=== PATIENT | female | born 1925 | race Caucasian/White ===

== ENCOUNTER 2017-05-31 08:27 | Inpatient (IN) ==
[2017-05-31] MEDS ORDERED: ONDANSETRON 4 MG/2 ML VIAL IV STA (08:52)
[2017-05-31] MEDS ORDERED: FAMOTIDINE 20 MG/2 ML VIAL IV STA (08:53)
--- NOTE | 2017-05-31 08:55 | Emergency Department Note ---
Arrival - Arrival Chief Complaint: GI Bleed/Rectal Stated Complaint: GI bleed ED Nursing Triage Note: Nausea and vomiting onset this am - black colored emesis - pt is from [facility] assisted living - pt has a HX of dementia Mode of Arrival: Stretcher Limitations: No Limitations Source: Patient, RN Notes Reviewed Time Seen by Provider: 05/31/17 08:47 - History of Present Illness HPI Narrative: Patient is an 89-year-old white female resident of the [facility]. She is seen today due to the staff having reported that she vomited coffee-ground material twice this morning. Patient has a history of a prior EGD which revealed nothing more than a hiatal hernia. Patient is not on anticoagulation. There is no history of melena, hematochezia. Onset (ago): hour(s) (3-4) Consistency: intermittent Severity: mild Date of Last Menstrual Period: missy Allergies/Adverse Reactions: Allergies Allergy/AdvReac Type Severity Reaction Status Date / Time No Known Allergies Allergy Unverified 08/15/16 03:02 Home Medications: Home Medications Medication Instructions Recorded Confirmed Type Chlorthalidone 25 mg PO DAILY 08/15/16 08/15/16 History Memantine [Namenda] 10 mg PO BID 08/15/16 08/15/16 History Mirtazapine [Remeron] 30 mg PO BEDTIME 08/15/16 08/15/16 History Pantoprazole Tab [Protonix Tab] 40 mg PO DAILY 08/15/16 08/15/16 History Ropinirole HCl [Requip] 5 mg PO BEDTIME 08/15/16 08/15/16 History Sertraline [Zoloft] 100 mg PO DAILY 08/15/16 08/15/16 History amLODIPine [Norvasc] 5 mg PO DAILY 08/15/16 08/15/16 History Albuterol/Ipratropium Neb [Duoneb] 3 ml RESP TX RT Q6H nebulization 08/18/16 Rx solution Bisacodyl Tab [Dulcolax Tab] 10 mg PO DAILY PRN #0 tablet 08/18/16 Rx Cefepime [Maxipime] 1,000 mg IV Q24H vial 08/18/16 Rx Enoxaparin [Lovenox] 30 mg SUBCUT Q24H syringe 08/18/16 Rx HYDROcodone/ACETAMIN 5-325 [[place] 1 tablet PO Q6HR PRN #45 tablet 08/18/16 Rx 5-325] Review of System - Review of System 12 point system: reviewed and no additional remarkable complaints except as stated Medical,Surgical,& Family Hx - Medical History Cardio: History of: Hypertension Neurology: History of: Dementia, Migraine Endocrine: No history of: Diabetes Mellitus (NIDDM) Respiratory: History of: Pneumonia Hematology: History of: Anemia - Social History Smoking Status: Never smoker Frequency of Alcohol Use: None Type of Drug Use: None Exam Vital Signs: Vital Signs Temperature 98.4 F 05/31/17 08:44 Pulse Rate 98 H 05/31/17 08:44 Respiratory Rate 20 05/31/17 08:44 Blood Pressure 124/80 05/31/17 08:44 O2 Sat by Pulse Oximetry 85 L 05/31/17 08:35 GENERAL: This is a well-nourished well-developed white female in no apparent distress. VITAL SIGNS: Reviewed HEENT: Head is atraumatic and normocephalic. Pupils are equal round react to light. Extraocular movements are intact. Short conjunctiva. Oropharynx is benign with moist mucous membranes. NECK: Neck is soft and supple without tenderness. There are no masses. There is no lymphadenopathy. LUNGS: Lungs are clear to auscultation. Chest rises symmetrically. There is no chest wall tenderness. CV: Heart is regular rate and rhythm without murmurs rubs or gallops. ABDOMEN: Abdomen is soft, nontender to palpation. There are no abdominal abnormal masses palpated. There is no organomegaly. Bowel sounds are present and active. Rectal: No masses, good rectal tone, heme positive stool. SKIN: Skin is warm and dry. No rash. EXTREMITIES: Patient has full range of motion without tenderness. There is no pedal edema. NEUROLOGIC: Awake, alert, oriented to person. Cranial nerves II through XII are grossly intact. Motor is 5 over 5 in all extremities bilaterally. Course - Consultations Consultation #1: Discussed with hospitalist. Patient will be admitted to their service. Time: 09:48 Results - Labs CBC & BMP: 05/31/17 08:39 05/31/17 08:39 Lab Results: I have reviewed the patients labs - EKG EKG results: interpreted by ERMD - Impressions EKG: Normal sinus rhythm with a rate of 93, nonspecific ST-T wave changes, normal axis. - Diagnostic Findings Procedure: Abdominal x-ray: image reviewed by me (Uterine fibroids. Nonspecific gas pattern, no free air.), Chest x-ray: image reviewed by me ( Minimal increased pulmonary markings bilaterally.) Disposition Clinical Impression: Upper GI bleeding, Acute upper GI bleeding Case discussed with: patient, patient's family Disposition: Still a Patient Condition: Stable Time of Disposition: 09:48
[2017-05-31 09:06] LABS: Basophils # 0.1 10*3/uL (0.0-0.2); Basophils % 0.3 % (0.0-0.8); Hematocrit 31.2 VOL% (35.7-47.0); Hemoglobin 10.8 GM/DL (12.0-16.0); Immature Granulocytes % 0.8 %; Immature Granulocytes Absolute 0.23 #; Lymphocytes % 3.4 % (21.3-54.2); Mean Corpuscular HGB Conc 34.6 GM/DL (32-36); Mean Corpuscular Hemoglobin 27 PG (27-34); Mean Corpuscular Volume 78.2 FL (87-102); Mean Platelet Volume 10.5 FL (9.6-12.0); Monocytes # 1.2 10*3/uL (0.11-0.8); Monocytes % 4.3 % (1.7-12.7); Neutrophils # 26.3 10*3/uL (1.4-7.4); Neutrophils % 91.2 % (38.7-73.9); Platelet Count 307 T/CUMM (130-400); Red Blood Count 3.99 MC/CUMM (3.8-5.5); Red Cell Distribution Width 16.1 % (9.3-17.3); White Blood Count 28.8 T/CUMM (4-12)
[2017-05-31 09:12] LABS: INR 1.1; PT Patient Result 11.9 SECS; Partial Thromboplastin Time 24.5 SECS (0-40)
[2017-05-31] MEDS ORDERED: FAMOTIDINE 20 MG/2 ML VIAL IV ONE (09:21)
[2017-05-31] MEDS ORDERED: ONDANSETRON 4 MG/2 ML VIAL ONE (09:21)
--- NOTE | 2017-05-31 09:23 | XRay Report ---
Portable chest Exam date: 05/31/2017 8:52 AM Indication: Shortness of breath, cough Comparison: August 16, 2016 Findings: Cardiomediastinal contours are stable. Perihilar and bibasilar reticulonodular interstitial thickening. Superimposed on chronic interstitial fibrosis. No acute osseous abnormalities. Visualized upper abdomen demonstrates no acute pathology. Impression: Perihilar and bibasilar interstitial opacities, likely infectious/inflammatory etiology PROCEDURE INTERPRETED AT [facility] DEPARTMENT OF RADIOLOGY Final Report Signed by: Charbel Allen
--- NOTE | 2017-05-31 09:24 | XRay Report ---
EXAM: XR abdomen 2V CLINICAL INDICATION: Abdominal Pain COMPARISON: None Findings: No gastric distention. [No abnormally dilated small bowel loops are identified to suggest obstruction. No free intraperitoneal air.] [Rotary scoliosis of the lumbar spine is noted. Visceral shadows are normal. No abnormal focal soft tissue masses or calcific densities identified in the abdomen or pelvis. IMPRESSION: Normal bowel gas pattern PROCEDURE INTERPRETED AT [facility] DEPARTMENT OF RADIOLOGY Final Report Signed by: Charbel Allen
[2017-05-31 09:29] LABS: Hypochromasia 1+; Lymphocytes 6 % (20-55); Microcytosis 1+; Segmented Neutrophils 91 % (50-85); Total Cells Counted 100
[2017-05-31 09:30] LABS: Platelet Estimate Normal
[2017-05-31 09:33] LABS: Albumin 3.4 G/DL (3.4-5.0); Bilirubin,Total 0.9 MG/DL (0.2-1.0); Calcium 8.1 MG/DL (8.5-10.1); Osmolality,Calculated 280.7 MOS/KG (273-304); Potassium 3.1 MMOL/L (3.5-5.1); Total Protein 7.4 G/DL (6.4-8.3)
--- NOTE | 2017-05-31 09:55 | EKG Report ---
Stationary ECG Study [facility] ER Test Date: 05/31/2017 9:28:19 AM Pat Name: NATASHA FROST Department: Room: Gender: F Irrigation Service Technician: : [id number] Requested by: Ed Newton Order Number: [id number] Reading MD: JO ANN COLBERT Intervals [place] Rate: 93 P: 57 [place]: 147 QRS: 26 QRSD: 90 T: 64 QT: 368 QTc: 418 Interpretive Statements SINUS RHYTHM MODERATE ST DEPRESSION Electronically Signed On 05-31-17 22:17:30 CDT by JO ANN COLBERT [email or web address]
--- NOTE | 2017-05-31 10:32 | Hospitalist History & Physical ---
<Katelyn Da Silva - Last Filed: 05/31/17 11:04> Assessment and Plan - Time spent with patient Time spent with patient: Greater than 30 minutes (1) Pneumonia Status: Acute Assessment and plan: 05/31/17 Admit to Monitored Bed Start IV hydration - (BUN 25 & Creatinine 1.40) O2 NC for supplemental oxygen Blood cultures x2 and sputum culture Steroids breathing treatment will discuss with Dr Rodriguez for further recommendations with care Current Visit: No (2) GI bleeding Status: Acute Assessment and plan: 05/31/17 H&H stable 10.8 & 31.2 repeat a.m labs repeat H&H q 6hrs consult GI and appreciate their assistance with care Current Visit: Yes (3) Hypokalemia Status: Acute Assessment and plan: 05/31/17 start K replacement P.O. Current Visit: Yes History of Present Illness Chief complaint: vomiting x2 episodes (coffee ground) History of present illness: Ms. Fitzgerald is a 89 year old white female w/PMHx hypertension, dementia, anemia, pneumonia (2015) presented to the ED via EMS from [facility] in [place] for further evaluation of vomiting x2 episodes this a.m with coffee-ground and black in color. She has significant dementia but very pleasant and answers questions as she can. Her Granddaughter (Avis) at bedside and assisted with information. She reports the patient had an upper and lower GI evaluation about 3 years ago at [facility], only significant for Hiatal Hernia. Patient denies fever or chills. She's noted to have a non- productive cough. She is not on any type of blood thinners. IN ED: Vital Signs Stable Temp 98.4, HR 98, RR 20, BP 124/80, O2 SAT 91% on 2 liters. LABS significant for:WBC 28.8, H&H stable 10.8 & 31.2, Potassium 3.1, BUN 25, Creatinine 1.40, Glucose 139, Calcium 8.1. Abd Xr: normal bowel. HEME positive stool. CXR: perihilar and bibasilar interstitial opacities, likely infectious/ inflammatory. EKG: NSR Rate 93, nonspecific ST-T wave changes, normal axis. PCP: Dr Chang Valentine After discussion with Dr Haynes in the ED and Dr Rodriguez with hospital medicine, it was agreed to admit patient to monitored bed with further evaluation. Home medications to be reviewed and reconciliation to follow. CODE status is a DNR per granddaughter. Home Medications Medication Instructions Recorded Confirmed Type Chlorthalidone 25 mg PO QAM 08/15/16 05/31/17 History Memantine [Namenda] 10 mg PO BID@0600,1700 08/15/16 05/31/17 History Mirtazapine [Remeron] 30 mg PO BEDTIME 08/15/16 05/31/17 History Pantoprazole Tab [Protonix Tab] 40 mg PO QAM 08/15/16 05/31/17 History Ropinirole HCl [Requip] 5 mg PO BEDTIME 08/15/16 05/31/17 History Sertraline [Zoloft] 100 mg PO QAM 08/15/16 05/31/17 History amLODIPine [Norvasc] 5 mg PO QPM 08/15/16 05/31/17 History Bisacodyl Tab [Dulcolax Tab] 10 mg PO DAILY PRN #0 tablet 08/18/16 05/31/17 Rx Allergies Allergy/AdvReac Type Severity Reaction Status Date / Time No Known Allergies Allergy Unverified 08/15/16 03:02 Medical,Surgical,& Family Hx - Medical History Cardio: History of: Hypertension Neurology: History of: Dementia, Migraine Endocrine: No history of: Diabetes Mellitus (NIDDM) Respiratory: History of: Pneumonia Hematology: History of: Anemia - Surgical History Abdominal Surgeries: Surgical HX of: Colonoscopy (about 3 years ago (at [facility])), EGD (about [address] [facility]) - Social History Smoking Status: Never smoker Frequency of Alcohol Use: None Type of Drug Use: None Marital Status: Single Lives With:: [facility] Functional capacity: independent ambulation 12 point system: reviewed and no additional remarkable complaints except as stated - Constitutional Constitutional: Present: weakness (generalized weakness this a.m.). Absent: anorexia, chills, fever(s) - Cardiovascular Cardiovascular: Absent: dyspnea - Respiratory Respiratory: Present: cough (dry, non-productive) - Gastrointestinal Gastrointestinal: Present: coffee ground emesis, nausea, vomiting. Absent: diarrhea Exam - Constitutional Vitals: Period Temp Pulse Resp BP Sys/Bravo Pulse Ox Last 24 Hr 98.4 F-98.4 F 98-98 20-20 124-124/80-80 85 General appearance: normal weight, no acute distress - Head Head exam: Present: normal inspection - Eye Eye exam: Present: EOMI Pupils: Present: SHARMIN - Neck Neck exam: Present: normal inspection. Absent: thyromegaly - Respiratory Respiratory exam: Present: rhonchi (lower ). Absent: stridor, wheezes - Cardiovascular Cardiovascular exam: Present: regular rate and rhythm - GI/Abdominal GI/Abdominal exam: Present: normal bowel sounds, soft. Absent: tenderness, rebound - Extremities Exam Extremities exam: Present: normal inspection, full ROM. Absent: edema - Neurological Exam Neurological exam: Present: alert (oriented to person, to granddaughter (hx: dementia)), CN II-XII intact - Psychiatric Psychiatric exam: Present: normal affect, normal mood. Absent: agitated, anxious - Skin Skin exam: Present: normal color, warm, dry Results - Labs CBC & BMP: 05/31/17 08:39 05/31/17 08:39 Lab Results: I have reviewed the past 24 hour labs - EKG EKG results: interpreted by ERMD - Diagnostic Findings Procedure: Abdominal x-ray: report reviewed by me (normal bowel gas pattern), Chest x-ray: report reviewed by me (perihilar and bibasilar interstitial opacities, likely infectious/inflammation ) <Eloy Rodriguez - Last Filed: 05/31/17 14:18> History of Present Illness History of present illness: Ms. Fitzgerald is a 89 year old female who is being admitted to the hospital with pneumonia and an upper gastrointestinal bleed. I have interviewed and examined the patient and reviewed all the available laboratory and radiographic test results. I agree with the assessment and plans of Katelyn Timmons NP. Ms. Fitzgerald will be admitted to the hospital, begun on intravenous corticosteroids and antibiotics, be begun on albuterol ipratropium nebulizer therapy, and be started on pantoprazole. Gastroenterology has been consulted for evaluation of the upper gastrointestinal bleeding. Exam - Constitutional Vitals: Period Temp Pulse Resp BP Sys/Bravo Pulse Ox Last 24 Hr 98.4 F-98.4 F 83-98 19-25 107-166/39-80 85-100 Results - Labs CBC & BMP: 05/31/17 12:37 05/31/17 08:39
[2017-05-31 10:39] LABS: Apearance,Urine CLEAR (Clear); Bilirubin,Urine Negative (Negative); Blood, Urine Negative (Negative); Glucose,Urine (UA) Negative (Negative); Ketones,Urine Negative (Negative); Nitrite,Urine Negative (Negative); Protein,Urine Negative; RBC,Urine 9 /HPF (0-4); Urine Color Yellow (Yellow); Urine Urobilinogen < 2.0 EU/DL (0.2-1.0); WBC,Urine 1 /HPF (0-6)
[2017-05-31 12:43] LABS: Hemoglobin 10.1 GM/DL (12.0-16.0)
[2017-05-31] MEDS ORDERED: ONDANSETRON 4 MG/2 ML VIAL IV PRN (12:53)
[2017-05-31] MEDS: ALBUTEROL/IPRATROPIUM 3 ML NEB RESP TX SCH ×2 (13:08→18:40)
[2017-05-31] MEDS ORDERED: POTASSIUM CHLORIDE 20 MEQ TABLET PO ONE ×2 (13:23→14:00)
[2017-05-31] MEDS ORDERED: LEVOFLOXACIN INJ 150 ML IV ONE (13:23)
[2017-05-31] MEDS ORDERED: methylPREDNISolone SOD SUC 40 MG/1 ML VIAL ONE (13:23)
[2017-05-31] MEDS ORDERED: LEVOFLOXACIN INJ 750 MG in PREMIX 1 EACH IV SCH (14:00)
[2017-05-31] MEDS: methylPREDNISolone SOD SUC 40 MG/1 ML VIAL IV SCH ×2 (14:05→21:45)
[2017-05-31] MEDS: SODIUM CHLORIDE 0.9% 1,000 ML IV SCH ×2 (15:31→23:41)
[2017-05-31] MEDS: PANTOPRAZOLE 40 MG VIAL IV SCH ×2 (15:31→20:25)
--- NOTE | 2017-05-31 15:52 | Gastrointestinal Consult Note ---
<Chantell Cosby - Last Filed: 05/31/17 15:47> Assessment and Plan (1) GI bleeding Status: Acute Assessment and plan: 05/31-Onset of coffee ground emesis w/o associated complaints. Prior endoscopy noted as below. HH stable at 07/17. Continue to monitor serial HH and transfuse as necessary. Check stools for occult blood. Plan for tentative EGD tomorrow to further evaluate. Plan and addendum to follow by Dr Walton. Current Visit: Yes History of Present Illness Chief complaint: Anemia, heme positive stools History of present illness: Ms. Fitzgerald is a 89 year old female who was admitted to the hospital from the custodial facility she lives at with reports of vomiting coffee ground emesis. Pt is a poor historian therefore information is obtained from chart review. She has a prior history of hypertension. No other information available in facility database. Pt reportedly was in her usual state of health until today when she had a sudden onset of nausea and vomiting of coffee ground emesis this morning twice. She was brought to the ER for further evaluation at that time. She has a history of dementia and unable to recall the events of this morning. She denies any abdominal pain. She is not aware of any reports of melena or hematochezia. She is noted to have a reported GI evaluation three years ago at the [facility] with only findings of hiatal hernia. She has no history of anticoagulants and is unable to recall any NSAIDS. She does take Protonix for GERD but denies any worsening symptoms or dysphagia. She was found to be heme positive in the ER. HH on admission 07/19 with findings also of leukocytosis with EBC 29249. She is noted on last hospital stay approximately a year ago to have HH 05/11 and negative stools for blood at that time. Home Medications Medication Instructions Recorded Confirmed Type Chlorthalidone 25 mg PO QAM 08/15/16 05/31/17 History Memantine [Namenda] 10 mg PO BID@0600,1700 08/15/16 05/31/17 History Mirtazapine [Remeron] 30 mg PO BEDTIME 08/15/16 05/31/17 History Pantoprazole Tab [Protonix Tab] 40 mg PO QAM 08/15/16 05/31/17 History Sertraline [Zoloft] 100 mg PO QAM 08/15/16 05/31/17 History amLODIPine [Norvasc] 5 mg PO QPM 08/15/16 05/31/17 History Bisacodyl Tab [Dulcolax Tab] 10 mg PO DAILY PRN #0 tablet 08/18/16 05/31/17 Rx LORazepam TAB [Ativan Tab] 0.5 mg PO AC SUPPER 05/31/17 05/31/17 History Ropinirole HCl [Requip] 0.5 mg PO BEDTIME 05/31/17 05/31/17 History Zinc Oxide 16% Paste [Martín's 1 applic TOP DIRECTED 05/31/17 05/31/17 History Butt Paste] Allergies Allergy/AdvReac Type Severity Reaction Status Date / Time No Known Allergies Allergy Unverified 08/15/16 03:02 Medical,Surgical,& Family Hx - Medical History Cardio: History of: Hypertension Psychological: No history of: Anxiety Disorders, ADHD, Behavior Problems, Bipolar Disorder, Depression, Previous Suicide Attempt, Psychiatric/Substance Abuse Tx, Schizophrenia, Violent Behavior, Psychiatric Problems Neurology: History of: Dementia, Migraine Endocrine: No history of: Diabetes Mellitus (NIDDM) Respiratory: History of: Pneumonia Hematology: History of: Anemia - Surgical History Abdominal Surgeries: Surgical HX of: Colonoscopy (about 3 years ago (at [facility])), EGD (about 3 years ago at [facility]) - Family History Family History: Reports;: Family Heart Disease - Social History Smoking Status: Never smoker Frequency of Alcohol Use: None Type of Drug Use: None ROS unobtainable: due to mental status Exam - Constitutional Vitals: Period Temp Pulse Resp BP Sys/Bravo Pulse Ox Last 24 Hr 98.4 F-98.6 F 83-98 19-25 104-166/39-80 85-100 General appearance: normal weight, no acute distress - Head Head exam: Present: normal inspection, normocephalic - Eye Eye exam: Present: other (lids and conjunctiva unremarkable). Absent: scleral icterus - ENT ENT exam: Present: normal exam, normal oropharynx - Neck Neck exam: Present: normal inspection - Respiratory Respiratory exam: Present: clear to auscultation bilaterally. Absent: rales, rhonchi, wheezes - Cardiovascular Cardiovascular exam: Present: regular rate and rhythm. Absent: diastolic murmur , JVD, systolic murmur - GI/Abdominal GI/Abdominal exam: Present: normal bowel sounds, soft. Absent: ascites, distended, mass, organomegaly, tenderness - Extremities Exam Extremities exam: Present: normal inspection, full ROM - Back Exam Back exam: Present: normal inspection - Neurological Exam Neurological exam: Present: alert, altered - Psychiatric Psychiatric exam: Present: normal affect, normal mood - Skin Skin exam: Present: normal color, warm, dry Results - Labs CBC & BMP: 05/31/17 12:37 05/31/17 08:39 Lab Results: I have reviewed the past 24 hour labs - Diagnostic Findings Procedure: Abdominal x-ray: report reviewed by il <Ishmael Walton - Last Filed: 05/31/17 20:51> History of Present Illness History of present illness: Ms. Fitzgerald is a 89 year old female Exam - Constitutional Vitals: Period Temp Pulse Resp BP Sys/Bravo Pulse Ox Last 24 Hr 97.5 F-98.6 F 82-98 16-25 104-166/39-80 85-100 Results - Labs CBC & BMP: 05/31/17 16:39 05/31/17 08:39
[2017-05-31 17:03] LABS: Hematocrit 26.5 VOL% (35.7-47.0); Hemoglobin 9.4 GM/DL (12.0-16.0)
[2017-05-31 23:39] LABS: Hematocrit 25.3 VOL% (35.7-47.0); Hemoglobin 8.6 GM/DL (12.0-16.0)
[2017-06-01] MEDS: ALBUTEROL/IPRATROPIUM 3 ML NEB RESP TX SCH ×4 (00:40→19:18)
[2017-06-01 05:18] LABS: Hematocrit 27.5 VOL% (35.7-47.0); Hemoglobin 9.2 GM/DL (12.0-16.0)
[2017-06-01 05:25] LABS: Basophils % 0.2 % (0.0-0.8); Hematocrit 26.8 VOL% (35.7-47.0); Hemoglobin 9.2 GM/DL (12.0-16.0); Immature Granulocytes % 1.1 %; Immature Granulocytes Absolute 0.26 #; Lymphocytes % 4.3 % (21.3-54.2); Mean Corpuscular HGB Conc 34.3 GM/DL (32-36); Mean Corpuscular Hemoglobin 27 PG (27-34); Mean Corpuscular Volume 78.4 FL (87-102); Mean Platelet Volume 10.8 FL (9.6-12.0); Monocytes # 0.4 10*3/uL (0.11-0.8); Monocytes % 1.7 % (1.7-12.7); Neutrophils # 21.9 10*3/uL (1.4-7.4); Neutrophils % 92.7 % (38.7-73.9); Platelet Count 252 T/CUMM (130-400); Red Blood Count 3.42 MC/CUMM (3.8-5.5); Red Cell Distribution Width 16.3 % (9.3-17.3); White Blood Count 23.6 T/CUMM (4-12)
[2017-06-01 05:48] LABS: Calcium 7.9 MG/DL (8.5-10.1); Magnesium 2.2 MG/DL (1.8-2.4); Osmolality,Calculated 285.4 MOS/KG (273-304); Potassium 3.5 MMOL/L (3.5-5.1)
[2017-06-01] MEDS: methylPREDNISolone SOD SUC 40 MG/1 ML VIAL IV SCH ×3 (05:48→21:16)
[2017-06-01 05:54] LABS: Lymphocytes 4 % (20-55); Segmented Neutrophils 96 % (50-85); Total Cells Counted 100
[2017-06-01 05:55] LABS: Platelet Estimate Normal; Target Cells Slight
[2017-06-01] MEDS: SODIUM CHLORIDE 0.9% 1,000 ML IV SCH ×3 (09:21→17:51)
[2017-06-01] MEDS: PANTOPRAZOLE 40 MG VIAL IV SCH ×2 (10:00→21:15)
--- NOTE | 2017-06-01 11:29 | Operative Note ---
Date of procedure: 06/01/17 Pre-op diagnosis: Hematemesis Procedure: EGD with biopsy 89-year-old white female with significant dementia reportedly with hematemesis unable to provide any history now for EGD to further evaluate. Informed symptoms obtained from the patient's guardian. She was sedated with general anesthesia per anesthesia protocol. Patient was placed in the left lateral decubitus position the Olympus flexible video upper endoscope was inserted into the oral cavity under direct vision the esophagus intubated. Findings: Esophagus-normal proximal and mid esophageal mucosa there is Montejo's appearing epithelium extending from 28 cm to 36 cm. Biopsies were taken. She has a very large sliding hiatal hernia. Stomach-normal insufflation normal mucosa to direct retroflexed views of the body fundus cardia and antrum the stomach with approximately 40% the stomach in the chest. Pylorus normal Duodenum-normal from the bulb and duodenum to the third portion of duodenum. The procedure terminated placed our procedure well she is discharged recovery in good condition. Postop diagnosis: 1. Gastroesophageal reflux disease-continue PPI treatment antireflux precautions 2. Montejo's mhtwfvztu-[id number]-ed biopsies 3. Suspect her hematemesis is related to chronic irritation from her sliding hiatal hernia and would not recommend surgical treatment at this time. Anesthesia: MAC Surgeon / Physician: Ishmael Walton Estimated blood loss: none Specimens: other (Montejo's esophagus) Condition: stable Disposition: post procedure unit Results - Labs CBC & BMP: 06/01/17 04:51 06/01/17 04:51 Discharge Plan - Discharge Medications No Action Mirtazapine [Remeron] 30 mg PO BEDTIME amLODIPine [Norvasc] 5 mg PO QPM Sertraline [Zoloft] 100 mg PO QAM Pantoprazole Tab [Protonix Tab] 40 mg PO QAM Chlorthalidone 25 mg PO QAM Memantine [Namenda] 10 mg PO BID@0600,1700 Bisacodyl Tab [Dulcolax Tab] 10 mg PO DAILY PRN #0 tablet PRN Reason: Constipation Ropinirole HCl [Requip] 0.5 mg PO BEDTIME LORazepam TAB [Ativan Tab] 0.5 mg PO AC SUPPER Zinc Oxide 16% Paste [Martín's Butt Paste] 1 applic TOP DIRECTED - Follow Up or Referral - Forms/Instructions
--- NOTE | 2017-06-01 11:53 | Anesthesia Post-Op ---
Anesthesia Post OP - Post Ansesthetic Evaluation Patient seen in post op: Yes Resp: within normal limits CV: within normal limits Mental: within normal limits Temp: within normal limits Qgzl-He-Syuboglad: within normal limits Nausea and Vomiting: within normal limits Pain: within normal limits
--- NOTE | 2017-06-01 12:02 | Hospitalist Progress Note ---
Assessment and Plan (1) GERD (gastroesophageal reflux disease) Status: Acute Assessment and plan: She has been begun on pantoprazole by gastroenterology. Current Visit: Yes Qualifiers: Esophagitis presence: with esophagitis Qualified Code(s): K21.0 - Gastro- esophageal reflux disease with esophagitis (2) Upper GI bleeding Status: Acute Assessment and plan: As noted above, it is the impression of gastroenterology that her hematemesis was secondary to esophageal irritation from her sliding hiatus hernia. Current Visit: Yes (3) Barretts esophagus Status: Acute Current Visit: Yes Qualifiers: Montejo's esophagus type: without dysplasia Qualified Code(s): K22.70 - Montejo's esophagus without dysplasia (4) Anemia Status: Acute Assessment and plan: Her hematocrit and hemoglobin today are 27.5 and 9.2 respectively. Current Visit: Yes Qualifiers: Anemia type: unspecified type Qualified Code(s): D64.9 - Anemia, unspecified (5) Dementia Status: Acute Current Visit: Yes Hospitalist: Subjective Interval history: Patient is status post EGD with biopsy. She was found to have gastroesophageal reflux disease and Montejo's esophagus. It is Dr. Walton's impression that her hematemesis was most probably related to chronic irritation from her sliding hiatus hernia. Exam - Constitutional Vitals: Period Temp Pulse Resp BP Sys/Bravo Pulse Ox Last 24 Hr 97.2 F-98.6 F 75-91 16-25 90-119/34-051 90-100 General appearance: no acute distress - Head Head exam: Present: normal inspection - Neck Neck exam: Present: normal inspection - Respiratory Respiratory exam: Present: clear to auscultation bilaterally - Cardiovascular Cardiovascular exam: Present: regular rate and rhythm - GI/Abdominal GI/Abdominal exam: Present: normal bowel sounds, soft, other (Nontender with no palpable masses or hepatosplenomegaly.) - Extremities Exam Extremities exam: Present: normal inspection - Skin Skin exam: Present: normal color, warm, intact Results - Labs CBC & BMP: 06/01/17 04:51 06/01/17 04:51
[2017-06-01] MEDS ORDERED: BISACODYL 5 MG TABLET PO PRN (12:59)
[2017-06-01] MEDS: ZINC OXIDE 16% PASTE 57 GM TUBE TOP SCH (15:04)
[2017-06-01] MEDS ORDERED: ACETAMINOPHEN 325 MG TABLET PO PRN (16:09)
[2017-06-01] MEDS: MEMANTINE 10 MG TABLET PO SCH (16:29)
[2017-06-01] MEDS: LORazepam 0.5 MG TABLET PO SCH (16:29)
[2017-06-01] MEDS: MIRTAZAPINE 30 MG TABLET PO SCH (21:15)
[2017-06-01] MEDS: rOPINIRole 0.25 MG TABLET PO SCH (21:15)
[2017-06-01] MEDS: amLODIPine 5 MG TABLET PO SCH (21:15)
[2017-06-02] MEDS: SODIUM CHLORIDE 0.9% 1,000 ML IV SCH ×4 (00:22→23:17)
[2017-06-02] MEDS: ALBUTEROL/IPRATROPIUM 3 ML NEB RESP TX SCH ×5 (01:07→20:03)
[2017-06-02] MEDS: methylPREDNISolone SOD SUC 40 MG/1 ML VIAL IV SCH ×3 (05:47→23:16)
[2017-06-02] MEDS: MEMANTINE 10 MG TABLET PO SCH ×2 (05:47→16:16)
[2017-06-02 06:18] LABS: Basophils % 0.1 % (0.0-0.8); Hematocrit 24.6 VOL% (35.7-47.0); Hemoglobin 8.6 GM/DL (12.0-16.0); Immature Granulocytes Absolute 0.18 #; Lymphocytes # 1.3 10*3/uL (1.4-4.0); Mean Corpuscular Hemoglobin 27 PG (27-34); Mean Corpuscular Volume 77.4 FL (87-102); Mean Platelet Volume 11.3 FL (9.6-12.0); Monocytes # 0.8 10*3/uL (0.11-0.8); Neutrophils # 16.5 10*3/uL (1.4-7.4); Neutrophils % 87.9 % (38.7-73.9); Platelet Count 271 T/CUMM (130-400); Red Blood Count 3.18 MC/CUMM (3.8-5.5); Red Cell Distribution Width 16.4 % (9.3-17.3); White Blood Count 18.8 T/CUMM (4-12)
[2017-06-02 06:57] LABS: Calcium 7.7 MG/DL (8.5-10.1); Osmolality,Calculated 289.1 MOS/KG (273-304); Potassium 3.7 MMOL/L (3.5-5.1)
[2017-06-02] MEDS: CHLORTHALIDONE 25 MG TABLET PO SCH (09:22)
[2017-06-02] MEDS: PANTOPRAZOLE 40 MG VIAL IV SCH ×2 (09:22→23:13)
[2017-06-02] MEDS: SERTRALINE 100 MG TABLET PO SCH (09:22)
--- NOTE | 2017-06-02 10:04 | Gastrointestinal Progress Note ---
<Saeid Cosbyher Lamar - Last Filed: 06/02/17 10:01> Assessment and Plan (1) GI bleeding Status: Acute Assessment and plan: 06/02-EGD findings noted as below. No overt bleeding reported. HH remains stable. Plan and addendum to follow by Dr Walton. 05/31-Onset of coffee ground emesis w/o associated complaints. Prior endoscopy noted as below. HH stable at 07/17. Continue to monitor serial HH and transfuse as necessary. Check stools for occult blood. Plan for tentative EGD tomorrow to further evaluate. Plan and addendum to follow by Dr Walton. Current Visit: Yes Gastroenterology - PN: Subj Interval history: CC: Hemetemesis Pt is seen awake and alert lying in bed. States she is feeling better today. EGD findings on yesterday noted to show GERD and Barretts esophagus with biopsy pending at this time. Abdomen is soft, nontender. She is tolerating her diet at this time. She has had no overt bleeding reported. HH is stable at 05/12. ROS: Denies SOB or chest pain Exam (Progress Note) - Constitutional Vitals: Period Temp Pulse Resp BP Sys/Bravo Pulse Ox Last 24 Hr 96.4 F-99.1 F 72-103 16-24 90-149/34-053 90-99 General appearance: normal weight, no acute distress - Head Head exam: Present: normal inspection, normocephalic - Eye Eye exam: Present: other (lids and conjunctiva unremarkable). Absent: scleral icterus - ENT ENT exam: Present: normal exam, normal oropharynx - Neck Neck exam: Present: normal inspection - Respiratory Respiratory exam: Present: clear to auscultation bilaterally. Absent: rales, rhonchi, wheezes - Cardiovascular Cardiovascular exam: Present: regular rate and rhythm. Absent: diastolic murmur , JVD, systolic murmur - GI/Abdominal GI/Abdominal exam: Present: normal bowel sounds, soft. Absent: ascites, distended, mass, organomegaly, tenderness - Extremities Exam Extremities exam: Present: normal inspection, full ROM - Back Exam Back exam: Present: normal inspection - Neurological Exam Neurological exam: Present: alert, altered - Psychiatric Psychiatric exam: Present: normal affect, normal mood - Skin Skin exam: Present: normal color, warm, dry Results - Labs CBC & BMP: 06/02/17 05:32 06/02/17 05:32 Lab Results: I have reviewed the past 24 hour labs <Ishmael Walton - Last Filed: 06/02/17 21:37> Exam (Progress Note) - Constitutional Vitals: Period Temp Pulse Resp BP Sys/Bravo Pulse Ox Last 24 Hr 96.4 F-97.6 F 78-96 18-20 116-149/54-75 87-99 Results - Labs CBC & BMP: 06/02/17 05:32 06/02/17 05:32
--- NOTE | 2017-06-02 10:23 | Hospitalist Progress Note ---
Assessment and Plan (1) GERD (gastroesophageal reflux disease) Status: Acute Assessment and plan: She has been begun on pantoprazole by gastroenterology. Current Visit: Yes Qualifiers: Esophagitis presence: with esophagitis Qualified Code(s): K21.0 - Gastro- esophageal reflux disease with esophagitis (2) Upper GI bleeding Status: Acute Assessment and plan: As noted above, it is the impression of gastroenterology that her hematemesis was secondary to esophageal irritation from her sliding hiatus hernia. Current Visit: Yes (3) Barretts esophagus Status: Acute Current Visit: Yes Qualifiers: Montejo's esophagus type: without dysplasia Qualified Code(s): K22.70 - Montejo's esophagus without dysplasia (4) Anemia Status: Acute Assessment and plan: Her hematocrit and hemoglobin today are 24.6 and 8.6 respectively. Current Visit: Yes Qualifiers: Anemia type: unspecified type Qualified Code(s): D64.9 - Anemia, unspecified (5) Dementia Status: Acute Current Visit: Yes (6) Pneumonia Status: Acute Assessment and plan: She is presently being treated with intravenous levofloxacin. Current Visit: No Qualifiers: Pneumonia type: due to unspecified organism Laterality: bilateral Lung location: unspecified part of lung Qualified Code(s): J18.9 - Pneumonia, unspecified organism Hospitalist: Subjective Interval history: She is comfortable today with no complaints. She denies chest pain, shortness of breath, or coughing. She continues on pantoprazole for her gastroesophageal reflux disease and intravenous antibiotics for her pneumonia. Exam - Constitutional Vitals: Period Temp Pulse Resp BP Sys/Bravo Pulse Ox Last 24 Hr 96.4 F-99.1 F 72-103 16-24 90-149/34-053 90-99 General appearance: no acute distress - Head Head exam: Present: normal inspection - Neck Neck exam: Present: normal inspection - Respiratory Respiratory exam: Present: clear to auscultation bilaterally - Cardiovascular Cardiovascular exam: Present: regular rate and rhythm - GI/Abdominal GI/Abdominal exam: Present: normal bowel sounds, soft, other (Nontender with no palpable masses or hepatosplenomegaly.) - Extremities Exam Extremities exam: Present: normal inspection - Skin Skin exam: Present: normal color, warm, intact Results - Labs CBC & BMP: 06/02/17 05:32 06/02/17 05:32
[2017-06-02] MEDS ORDERED: LEVOFLOXACIN INJ 750 MG in PREMIX 1 EACH IV SCH (14:00)
[2017-06-02] MEDS: ZINC OXIDE 16% PASTE 57 GM TUBE TOP SCH (14:10)
[2017-06-02] MEDS: LORazepam 0.5 MG TABLET PO SCH (16:16)
--- NOTE | 2017-06-02 20:18 | Pathology Report from [facility] ---
[facility] [place] ACCESSION # : [id number] PATIENT NAME : Natasha Frost ORDERING DR : LADARIUS HENNING MD CLINICAL HX: GI Bleed POST-OP DX: Barretts esophagitis SPECIMEN INFO: Esophageal biopsy GROSS DESCRIPTION: The specimen is received in formalin labeled with the patients name and consists of a 0.6 x 0.2 cm aggregate of joe tissue. Submitted in one cassette. DIAGNOSIS FOR NATASHA FROST: ESOPHAGEAL BIOPSY: Fragmented gastric cardia-type mucosa with Barretts metaplasia and chronic inflammation; no dysplasia seen. COLLECTED DATE: 06/01/2017 [facility] REPORT DATE: 06/02/2017 ELECTRONICALLY SIGNED BY: Chang Metcalf M.D. 06/02/2017 - 14:34:26 [facility] CENTERLamar
[2017-06-02] MEDS: rOPINIRole 0.25 MG TABLET PO SCH (23:13)
[2017-06-02] MEDS: MIRTAZAPINE 30 MG TABLET PO SCH (23:16)
[2017-06-02] MEDS: amLODIPine 5 MG TABLET PO SCH (23:16)
[2017-06-03] MEDS: ALBUTEROL/IPRATROPIUM 3 ML NEB RESP TX SCH ×3 (00:27→13:34)
[2017-06-03] MEDS: MEMANTINE 10 MG TABLET PO SCH ×2 (07:17→16:12)
[2017-06-03] MEDS: methylPREDNISolone SOD SUC 40 MG/1 ML VIAL IV SCH ×2 (07:17→14:12)
[2017-06-03 07:55] LABS: Basophils % 0.1 % (0.0-0.8); Hematocrit 24.5 VOL% (35.7-47.0); Hemoglobin 8.7 GM/DL (12.0-16.0); Immature Granulocytes % 1.5 %; Immature Granulocytes Absolute 0.28 #; Lymphocytes # 1.6 10*3/uL (1.4-4.0); Lymphocytes % 8.4 % (21.3-54.2); Mean Corpuscular HGB Conc 35.5 GM/DL (32-36); Mean Corpuscular Hemoglobin 27 PG (27-34); Mean Corpuscular Volume 75.9 FL (87-102); Mean Platelet Volume 10.9 FL (9.6-12.0); Monocytes # 0.8 10*3/uL (0.11-0.8); Monocytes % 4.1 % (1.7-12.7); Neutrophils # 16.1 10*3/uL (1.4-7.4); Neutrophils % 85.9 % (38.7-73.9); Platelet Count 301 T/CUMM (130-400); Red Blood Count 3.23 MC/CUMM (3.8-5.5); Red Cell Distribution Width 16.4 % (9.3-17.3); White Blood Count 18.8 T/CUMM (4-12)
[2017-06-03 08:27] LABS: Osmolality,Calculated 282.4 MOS/KG (273-304); Potassium 3.9 MMOL/L (3.5-5.1)
[2017-06-03] MEDS: SERTRALINE 100 MG TABLET PO SCH (09:44)
[2017-06-03] MEDS: PANTOPRAZOLE 40 MG VIAL IV SCH (09:44)
[2017-06-03] MEDS: CHLORTHALIDONE 25 MG TABLET PO SCH (09:44)
[2017-06-03] MEDS: SODIUM CHLORIDE 0.9% 1,000 ML IV SCH ×2 (09:44→16:01)
--- NOTE | 2017-06-03 11:11 | Discharge Summary ---
Hospital Course - Hospital Course Hospital Course: Ms. Fitzgerald is a 89 year old female who [facility] with reports of vomiting coffee ground emesis. Pt is a poor historian therefore information is obtained from chart review. She has a prior history of hypertension. No other information available in facility database. Pt reportedly was in her usual state of health until today when she had a sudden onset of nausea and vomiting of coffee ground emesis this morning twice. She was brought to the ER for further evaluation at that time. She has a history of dementia and unable to recall the events of this morning. She denies any abdominal pain. She is not aware of any reports of melena or hematochezia. She is noted to have a reported GI evaluation three years ago at the [facility] with only findings of hiatal hernia. She has no history of anticoagulants and is unable to recall any NSAIDS. She does take Protonix for GERD but denies any worsening symptoms or dysphagia. She was found to be heme positive in the ER. HH on admission 07/19 with findings also of leukocytosis with EBC [id number]. She is noted on last hospital stay approximately a year ago to have HH 05/11 and negative stools for blood at that time. Patient was admitted to the hospital with pneumonia and upper gastrointestinal bleeding. She was treated for her pneumonia with intravenous levofloxacin. She was seen in consultation by Dr. Ishmael Walton of gastroenterology. She underwent an EGD on 06/01/17 demonstrating her to have evidence of gastroesophageal reflux disease and Montejo's esophagus. Dr. Walton recommended continued medical therapy with a PPI. She did well thereafter. Her hematocrit and hemoglobin at the time of discharge were stable at 26.8 and 9.2 respectively. Her BUN and creatinine were stable at 24 and 1.5 respectively. At the time of her discharge she was in stable condition. Diagnosis - Discharge Diagnosis (1) GERD (gastroesophageal reflux disease) Status: Chronic (2) Upper GI bleeding Status: Acute (3) Barretts esophagus Status: Chronic (4) Anemia Status: Acute (5) Dementia Status: Chronic (6) Pneumonia Status: Acute Discharge Plan - Discharge Data Disposition: Disch/Xfer to Snf Condition at Discharge: Stable Discharge Diet: advance to your usual diet Activity: resume usual activities as tolerated - Discharge Medications New Levofloxacin Tab [Levaquin Tab] 500 mg PO DAILY #4 tablet Continue Mirtazapine [Remeron] 30 mg PO BEDTIME amLODIPine [Norvasc] 5 mg PO QPM Sertraline [Zoloft] 100 mg PO QAM Chlorthalidone 25 mg PO QAM Memantine [Namenda] 10 mg PO BID@0600,1700 Bisacodyl Tab [Dulcolax Tab] 10 mg PO DAILY PRN #0 tablet PRN Reason: Constipation Ropinirole HCl [Requip] 0.5 mg PO BEDTIME LORazepam TAB [Ativan Tab] 0.5 mg PO AC SUPPER Zinc Oxide 16% Paste [Martín's Butt Paste] 1 applic TOP DIRECTED Changed Pantoprazole Tab [Protonix Tab] 40 mg PO BID #60 - Follow Up or Referral - Forms/Instructions Exam - Constitutional Vitals: Period Temp Pulse Resp BP Sys/Bravo Pulse Ox Last 24 Hr 97.2 F-97.6 F 78-96 18-20 116-157/54-80 87-99 Discharge Results Procedures and tests throughout hospitalization: Pending Orders 05/31/17 10:50 Occult Blood, Stool Routine 05/31/17 10:59 Sputum Culture and Gram Stain Routine 05/31/17 12:37 Blood Culture Stat Labs on day of discharge: Labs from last 24 hours 06/03/17 06/03/17 07:25 07:25 WBC 18.8 H RBC 3.23 L Hgb 8.7 L Hct 24.5 L MCV 75.9 L MCH 27 MCHC 35.5 RDW 16.4 Plt Count 301 MPV 10.9 Neut % (Auto) 85.9 H Lymph % (Auto) 8.4 L [place] % (Auto) 4.1 Eos % (Auto) 0.0 Baso % (Auto) 0.1 Neut # (Auto) 16.1 H Lymph # (Auto) 1.6 [place] # (Auto) 0.8 Eos # (Auto) 0.0 Baso # (Auto) 0.0 Immature Gran % 1.5 Nucleated RBC % 0.0 Immature Gran # 0.28 Nucleated RBCs # 0.00 Immature Plt Fraction 0.0 Sodium 140 Potassium 3.9 Chloride 107 Carbon Dioxide 25 Anion Gap 11.9 BUN 20 H Creatinine 1.10 H GFR Calculation 43 BUN/Creatinine Ratio 18.00 Glucose 122 H Calculated Osmolality 282.4 Calcium 8.0 L Preliminary micro results at discharge 05/31/17 12:37 Blood Culture - Preliminary Blood No growth at 1 day 05/31/17 12:37 Blood Culture - Preliminary Blood No growth at 1 day DS: Provider Date of admission: 05/31/17 09:56 Primary care physician: Margarito Valentine Attending physician on admission: Quang Bravo NP Consults: 05/31/17 10:51 Consult to Physician [CONS] Routine Comment: [facility] + Consulting Provider: Ishmael Walton When should Consulting Provider be notified: Now Consult to Specialist Group: Gastroenterology Person Notified: Chantell Cosby Date Notified: 05/31/17 Time Notified: 15:12 Consult Notification Comment: patient had 2 episodes this a.m. of coffee- ground/Black emesis at [facility] [place] [facility] was heme positive she had a scope about 3 years ago at [facility] (hiatal hernia results) her granddaughter helped with information - patient has dementia granddaughter works here in the ED ([employer]) Discharging clinician: Eloy Rodriguez
[2017-06-03] MEDS: ZINC OXIDE 16% PASTE 57 GM TUBE TOP SCH (14:12)
[2017-06-03 16:09] VITALS: BP 146/75
[2017-06-03] MEDS: LORazepam 0.5 MG TABLET PO SCH (16:12)
== END 2017-06-03 17:00 | DRG 391 ==
LOC: EDUNIT# → N.ED 08:27 → SUATTDRO 09:56 → N.5E 14:22
PROVIDERS: ADMIT Nurse Practitioner